=== PATIENT | male | born 1985 | race Caucasian/White ===

== ENCOUNTER 2022-08-07 16:19 | Inpatient (IN) | payer SELFPAY ==
[~2022-08-07] VITALS: Ht 172.7 cm; Wt 93.4 kg
[2022-08-07 14:25] VITALS: BP 148/80
--- NOTE | 2022-08-07 16:15 | NUR ---
PATIENT TRANSFERRED FROM [facility] WHERE HE HAD HERNIA SURGERY THIS MORNING. WAS GIVEN ANCEF 2G AT 0741 AND WAS LAST MEDICATED FOR PAIN AT 1500 WITH FENTANYL 300MCG AND DILAUDID 1G REPORTED FROM RN FROM [place]. ARRIVED VIA GUERNEY AND AMBULANCE AT 1615. VITAL SIGNS TAKEN AND RECORDED. ICE APPLIED TO SURGICAL WOUND ON ABDOMEN AND DRESSING REINFORCED. PATIENT HAS SEVERE PAIN 10/10 AND IS RESTLESS, GRIMACING AND GUARDING THE AREA. DR MARTIN INFORMED ABOUT PT'S ARRIVAL AND CURRENTLY WORKING ON MEDICATION ORDERS.
[2022-08-07] MEDS ORDERED: Z GUARD REMEDY 4 OZ OINT TP PRN (17:00)
[2022-08-07] MEDS ORDERED: HYDROMORPHONE INJ 2 MG/ML DISP.SYRIN IV PRN (17:00)
[2022-08-07] MEDS ORDERED: MAG HYDROX/AL HYDROX/SIMETH 30 ML UDC PO PRN (17:00)
[2022-08-07] MEDS ORDERED: ACETAMINOPHEN 325 MG TABLET PO PRN (17:00)
--- NOTE | 2022-08-07 18:36 | NUR ---
RN CLOSING NOTES PATIENT HAS PAIN 10/10 FROM HERNIA SURGERY EARLIER THIS MORNING. DR MARTIN ORDERED 1 MG DILAUDID IVP Q 4 HOURS FOR PAIN. LAST ADMINISTERED PAIN MED AT 1713. MODERATE AMOUNT OF SEROSANGUINOUS DRAINAGE ON ABD PAD COVERING SURGICAL WOUND. REINFORCED DRESSING AND PUT ICE ON TOP OF ABDOMINAL AREA. VITAL SIGNS STABLE AND SPO2=96% RA. IV ACCESS TO LEFT HAND #20G, PATENT AND SALINE LOCKED. TOOTH CUTTER CONTACT WHEEL CONSULT REQUESTED PATIENT IS CURRENTLY HOMELESS. SAFETY MEASURES APPLIED; BED IN LOWEST AND LOCKED POSITION, SIDE RAILS X 3, CALL LIGHT WITHIN EASY REACH. WILL ENDORSE LORENZO TO NEXT SHIFT.
--- NOTE | 2022-08-07 18:43 | NUR ---
RN MS NOTES PT COMPLAINING OF ABDOMINAL PAIN, PER DR. MARTIN, OK TO INCREASE FREQUENCY OF DILAUDID ORDER TO EVERY 3 HOURS PRN AND MAY GIVE THE NEXT DOSE NOW, NOTED AND CARRIED OUT.
[2022-08-07] MEDS: HYDROMORPHONE INJ 2 MG/ML DISP.SYRIN IV PRN ×2 (18:52→22:15)
[2022-08-07 20:00] VITALS: BP 143/83
--- NOTE | 2022-08-07 20:22 | NUR ---
RN OPENING NOTE PATIENT AWAKE IN BED W/ FAMILY AT BEDSIDE. A/OX4. NO S/S OF DISTRESS, BREATHING WITHOUT DIFFICULT ON ROOM AIR. L-HAND #20 SL INTACT AND PATENT. SAFETY MEASURES IN PLACE: BED LOCKED AT LOWEST LEVEL, RAILS UP X2, CALL SAUER WITHIN REACH. PATIENT HAS REMOVED HIS POST-SURGICAL DRESSING. NEW DRESSING APPLIED. NO S/S OF INFECTION OR ACTIVE BLEEDING. MODERATE DRAINAGE SEROSANGUINEOUS. PATIENT WAS CLEANED UP; ALL COMFORT MEASURES TAKEN. ON-CALL MD, DR. CABRERA, CONTACTED FOR AN ORDER TO AID IN DIMINISHING/LESSENING HIS RESTLESSNESS. WILL CONTINUE TO MONITOR PATIENT.
--- NOTE | 2022-08-07 22:15 | NUR ---
RN NOTE PATIENT HAD REQUESTED PAIN MEDS (TO BE ADMINISTERED VIA IV PER ORDER). PATIENT'S LINE WAS NO LONGER VIABLE. IV SUCCESSFULLY REMOVED WITH ALL PARTS INCLUDING CATH INTACT. NEW LINE SUCCESSFULLY INSERTED IN LFA, INFERIOR #20. PATIENT STABLE. WILL CONTINUE TO MONITOR PATIENT.
[2022-08-08] MEDS: HYDROMORPHONE INJ 2 MG/ML DISP.SYRIN IV PRN ×7 (01:33→22:57)
[2022-08-08 06:06] LABS: BASOPHILS % (AUTO) 0.2 % (0.0-2.0); HEMATOCRIT 37 % (39-51); HEMOGLOBIN 12.9 g/dL (13.5-17.5); LYMPHOCYTES # (AUTO) 1.2 K/uL (0.8-4.8); LYMPHOCYTES % (AUTO) 10.9 % (20.0-44.0); MEAN CORPUSCULAR HGB CONC 35 g/dl (31.0-36.0); MEAN CORPUSCULAR VOLUME 95 fL (80-96); MONOCYTES % (AUTO) 9.4 % (2.0-12.0); NEUTROPHILS # (AUTO) 8.4 K/uL (1.8-8.9); NEUTROPHILS % (AUTO) 79.5 % (43.0-81.0); PLATELET COUNT (AUTO) 215 K/uL (150-450); RED BLOOD CELL COUNT(AUTO) 3.88 MIL/uL (4.5-6.0); WHITE BLOOD COUNT (AUTO) 10.6 K/uL (4.3-11.0)
--- NOTE | 2022-08-08 06:44 | NUR ---
RN CLOSING NOTE PATIENT AWAKE IN BED. A/OX4. NO S/S OF DISTRESS, BREATHING WITHOUT DIFFICULTY ON ROOM AIR. LFA #20 SL INTACT AND PATENT. BED LOCKED AT LOWEST POSITION, RAILS UP X2, CALL SAUER WITHIN REACH. WILL ENDORSE TO NEXT SHIFT FOR LORENZO.
[2022-08-08 06:49] LABS: CALCIUM, SERUM 8.8 mg/dL (8.5-10.1); CREATININE 0.9 mg/dL (0.6-1.3); MAGNESIUM 1.9 mg/dL (1.8-2.4); PHOSPHORUS 2.9 mg/dL (2.5-4.9); POTASSIUM 3.4 mmol/L (3.5-5.1)
--- NOTE | 2022-08-08 07:23 | NUR ---
RN OPENING NOTES RECEIVED PATIENT IN BED, AWAKE, A/O X4, VERBALLY RESPONSIVE. NO SIGNS OF ACUTE DISTRESS NOTED. ON ROOM AIR, TOLERATING WELL. WITH C/O PAIN, WILL MEDICATE ORDERED. NOTED WITH LEFT FOREARM #20G, INTACT AND PATENT, SALINE LOCKED. SAFETY MEASURE IN PLACE. BED IN LOWEST AND LOCKED POSITION, SIDE RAILS UP X2, CALL LIGHT PLACED WITHIN EASY REACH. WILL CONTINUE TO MONITOR PATIENT.
[2022-08-08 08:00] VITALS: BP 127/89
[2022-08-08] MEDS ORDERED: ONDA4VIA52 IV (08:15)
[2022-08-08] MEDS ORDERED: ALLA266C2 TP (08:15)
[2022-08-08] MEDS ORDERED: MORP4VIA IV (08:15)
[2022-08-08] MEDS ORDERED: [UNRECOGNIZED DRUG - CODE] IV (08:15)
[2022-08-08] MEDS ORDERED: MAGN400O6 PO (08:15)
[2022-08-08] MEDS ORDERED: PANT40VI IV (08:15)
[2022-08-08] MEDS ORDERED: ACET-868 PO (08:15)
[2022-08-08] MEDS ORDERED: POTASSIUM CHLORIDE 20 MEQ POWDER PACKET PO SCH (11:00)
[2022-08-08] MEDS ORDERED: NALOXONE HCL 0.4 MG/ML AMPUL IV PRN (14:00)
[2022-08-08] MEDS: GABAPENTIN 300 MG CAPSULE PO SCH ×2 (14:43→16:53)
[2022-08-08] MEDS: oxyCODONE HCL SR 40MG TAB.SR.12H PO SCH ×2 (14:43→20:12)
[2022-08-08 16:00] VITALS: BP 136/91
--- NOTE | 2022-08-08 18:51 | NUR ---
RN CLOSING NOTES PATIENT RESTING IN BED, A/O X4, VERBALLY RESPONSIVE. NO SIGNS OF ACUTE DISTRESS NOTED. REMAINS STABLE ON ROOM AIR, NO SOB NOTED, BREATHING EVEN AND UNLABORED. STILL WITH C/O PAIN, MEDICATED NEEDED. IV ACCESS ON LEFT FOREARM #20G, INTACT AND PATENT, SALINE LOCKED. SURGICAL DRESSING CHANGED. SAFETY PRECAUTIONS OBSERVED. BED IN LOWEST AND LOCKED POSITION, SIDE RAILS UP X2, CALL LIGHT PLACED WITHIN EASY REACH. WILL ENDORSE TO NEXT SHIFT FOR CONTINUITY OF CARE.
--- NOTE | 2022-08-08 19:43 | NUR ---
RN OPENING NOTES; RECEIVED PATIENT IN BED AA/O X4, VERBALLY RESPONSIVE.SAIGE WELL ON ROOM AIR, NO SOB/DISTRESS NOTED, BREATHING EVEN AND UNLABORED.NO COMPLAINE OF PAIN/DISCOMFORT AT THIS TIME,IV ACCESS ON LEFT FOREARM #20G, INTACT AND PATENT, SALINE LOCKED.SAFETY PRECAUTIONS OBSERVED. BED IN LOWEST AND LOCKED POSITION, SIDE RAILS UP X2, CALL LIGHT PLACED WITHIN EASY REACH. WILL CONTINIUE TO MONITOR.
[2022-08-08 20:00] VITALS: BP 112/74
[2022-08-08] MEDS: ZOLPIDEM TARTRATE 5 MG TABLET PO PRN (22:35)
--- NOTE | 2022-08-08 22:57 | NUR ---
RN NOTES; PATIENT COMPLAINED OF PAIN 10/10 LOWER ANTERIOR UPPER ABD 8/10,PRN DILAUDED 2MG INJ,WAS GIVEN.NO A/R NOTED.
[2022-08-09] MEDS: HYDROMORPHONE INJ 2 MG/ML DISP.SYRIN IV PRN ×6 (03:53→22:41)
--- NOTE | 2022-08-09 03:53 | NUR ---
RN NOTES; PATIENT COMPLAINED OF PAIN 10/10 LOWER ANTERIOR UPPER ABD 8/10,PRN DILAUDED 2MG INJ,WAS GIVEN.NO A/R NOTED.
[2022-08-09 04:00] VITALS: BP 128/95
--- NOTE | 2022-08-09 06:22 | NUR ---
RN CLOSING NOTES; PATIENT IN BED AA/O X4, VERBALLY RESPONSIVE.SAIGE WELL ON ROOM AIR, NO SOB/DISTRESS NOTED, BREATHING EVEN AND UNLABORED.DUE MEDS GIVEN ORDER,ALL NEEDS ATTENDED,,IV ACCESS ON LEFT FOREARM #20G, INTACT AND PATENT, SALINE LOCKED.SAFETY PRECAUTIONS OBSERVED. BED IN LOWEST AND LOCKED POSITION, SIDE RAILS UP X2, CALL LIGHT PLACED WITHIN EASY REACH. WILL ENDORSED TO NEXT SHIFT.
[2022-08-09 07:33] LABS: CALCIUM, SERUM 9.1 mg/dL (8.5-10.1); CREATININE 0.9 mg/dL (0.6-1.3); POTASSIUM 3.3 mmol/L (3.5-5.1)
--- NOTE | 2022-08-09 07:58 | NUR ---
RN OPENING NOTES; PATIENT IN BED A/O X4, VERBALLY RESPONSIVE. ON ROOM AIR, NO SOB/DISTRESS NOTED, BREATHING EVEN AND UNLABORED.ALL NEEDS ATTENDED,IV ACCESS ON LEFT FOREARM #20G, INTACT AND PATENT, SALINE LOCKED.SAFETY PRECAUTIONS OBSERVED. BED IN LOWEST AND LOCKED POSITION, SIDE RAILS UP X2, CALL LIGHT PLACED WITHIN EASY REACH. WILL CONTINUE TO MONITOR..
[2022-08-09 08:00] VITALS: BP 133/80
[2022-08-09] MEDS ORDERED: POLYETHYLENE GLYCOL 3350 17 GM POWD.PACK PO PRN (09:00)
[2022-08-09] MEDS: GABAPENTIN 300 MG CAPSULE PO SCH ×3 (09:42→16:18)
[2022-08-09] MEDS: oxyCODONE HCL SR 40MG TAB.SR.12H PO SCH ×2 (09:44→20:45)
[2022-08-09] MEDS: MAGNESIUM HYDROXIDE 30 ML UDC PO PRN (11:10)
[2022-08-09] MEDS ORDERED: POTASSIUM CHLORIDE 20 MEQ TAB.PRT.SR PO SCH (11:30)
--- NOTE | 2022-08-09 18:55 | NUR ---
RN CLOSING NOTES; PATIENT IN BED A/O X4, VERBALLY RESPONSIVE. ON ROOM AIR, NO SOB/DISTRESS NOTED, BREATHING EVEN AND UNLABORED.ALL NEEDS ATTENDED,IV ACCESS ON LEFT FOREARM #20G, INTACT AND PATENT, SALINE LOCKED.ALL DUE MEDS GIVEN ORDERED. NO BM YET . MOM GIVEN. ALL SAFETY PRECAUTIONS OBSERVED. BED IN LOWEST AND LOCKED POSITION, SIDE RAILS UP X2, CALL LIGHT PLACED WITHIN EASY REACH. WILL ENDORSE FOR LORENZO..
[2022-08-09 20:32] VITALS: BP 129/81
[2022-08-09 20:44] VITALS: BP 129/81
[2022-08-09] MEDS: ZOLPIDEM TARTRATE 5 MG TABLET PO PRN (23:35)
[2022-08-10 02:00] VITALS: BP 139/72
[2022-08-10] MEDS: HYDROMORPHONE INJ 2 MG/ML DISP.SYRIN IV PRN ×5 (02:40→22:02)
--- NOTE | 2022-08-10 04:06 | NUR ---
CLOSING NOTES: ALERT AND ORIENTATED X4 COOPERATIVE ABD GUARDED /DRESSING CDI (S/P) HERNIA REPAIR BS AUDIBLE VIA AUSCULTATION PASSING FLATUS, NO BM YET. CHANGING HIS OWN POSITION IN BED THRU THE NIGHT MEDICATED WITH DILAUDID ORDERED AND EFFECTIVE FOR THE PAIN CONTROL.
[2022-08-10 06:36] LABS: CALCIUM, SERUM 9.3 mg/dL (8.5-10.1); CREATININE 0.9 mg/dL (0.6-1.3); POTASSIUM 3.4 mmol/L (3.5-5.1)
[2022-08-10 08:00] VITALS: BP 109/62
[2022-08-10] MEDS: GABAPENTIN 300 MG CAPSULE PO SCH ×3 (09:20→17:09)
[2022-08-10] MEDS: oxyCODONE HCL SR 40MG TAB.SR.12H PO SCH ×2 (09:21→21:33)
[2022-08-10] MEDS ORDERED: POTASSIUM CHLORIDE 20 MEQ POWDER PACKET PO SCH (10:00)
--- NOTE | 2022-08-10 11:22 | NUR ---
SS consult: SS consult requested for homelessness & drug use. The pt. is a 37-year-old male admitted to [facility] who was BIBRA due to Hernia repair. The pt. is Alert & Oriented x4 and makes good eye contact. The pt. appears well-groomed and remains calm & cooperative throughout interview. Pt. has depressed mood and affect. The pt.s speech is WNL. Pt. admits to current SI with no plan and Hi with no specific target he has thoughts of having. The pt. denies current hallucinations. SW explored pt.s Hx. of mental health. Pt. denies Hx. of diagnosis. SW explored pt.s living situation. Pt. states he is currently experiencing homelessness and stays on the streets with his friends. SW explored pt.s drug & ETOH use. Pt. states he recently began using M-30 fentanyl and is requesting detox facility. green end worker provided support with motivational interviewing, education regarding opioid dependence, brief intervention and referral to treatment. SW provided pt. with addiction resources and MAT resources: [facility]: [address] [place] [address] Intake hours: 5:45am9:00am, walk-ins Tuesday, Tuesday, [facility]: [address] [place] [address] Intake hours: 5:45am12:30pm, Tuesday and [facility]: [address] [place] [id number] Intake hours: 8:00am2:00pm, Tuesday through Tuesday Pt. accepted resources. Patient states he has received prior treatment for opioid dependence and has been sober for years until now. Pt. states his girlfriend and family are his support system. Patient appears to be at the action phase of change with substance dependence. Plan: Pt. has no insurance covergae at this time. The [employer] DEPT. helped him apply for Medi-Jin and admitting will apply for presumptive medi-jin. Pt. states he is open to voluntary admissions to [facility] where they can also help him with he detox and drug use component. YOSEPH will fax clinicals to [facility] TEL:[phone] fax:[phone] for for voluntary psychiatric treatment at [facility] [[address] [place] [address] FAX:[phone]] when presumptive mcal has taken effect. SW provided pt. with homeless, mental health and addiction resources and pt. accepted them. Patient signed homeless waiver & it was placed in the pt.s chart. Year-round shelters: [facility] [address] [place] [address] ; [facility] [address] [place] [address]; [facility] [address] [facility] [address] Hygiene: [facility]: [address] [place] ; [facility] [address] [facility] ; [facility] [address] [facility] . Food Resources: [facility] at [facility]- [address] [facility]; Meet Each Need with Dign[facility] ([facility]) [address] [facility]; [facility] [address] [facility]; [facility] [address] [facility]. Mental Health resources provided: [facility] [address] [place] [address] ; [facility] [address] [facility] [address], [place] [address] ; Brianna gNuyen [facility] [address] [place] [address] ; [facility] [address] [place] [address] Healthcare Clinics: [facility] [address] [facility], [address] [place]. [place] ; [facility] [address] [facility] [address] [place] [address]; [facility] [place] [address] [facility] [place] [address] [phone] Counseling--Outpatient [facility] [address], [address] [place], [place] [address] (Specializes in in-depth psychotherapy for emotional distress: anxiety, depression, interpersonal conflicts, life transitions, childhood abuse) [facility] [address] [place] [address] (Assist with solving problem marital difficulties, separation & divorce, aging parents, & grief, chronic & terminal illness) [facility] [address] [place] [address] (Deal with loss & grief, anxiety, marital difficulties) Homebound/Mental Health Services [address] [facility] [address] [place] [address] (Provide in-home mental services to people who are incapable of leaving their homes) [facility] Elderly Senior Service/[facility] [address] [facility] [place] [address] [facility] [address] [facility] [place] [address] PSYCHIATRIC OUTPATIENT SERVICES [facility] Partial Hospitalization and Intensive Outpatient Program (Managed Care and [place] Only)[address] [facility] [phone] [facility] Partial Hospitalization and Outpatient [id number] [place], [place] [phone] [facility] Center [id number] [facility] [address] [place], [place] [phone] [facility] Partial Hospitalization and Outpatient [id number] [place], [phone] Substance Abuse resources provided included: [facility] Substance Abuse Self-Helpline (SAS ; CRI -[facility]LP [address] [facility]. [place]. [place] [address] ; [facility] [address] [facility] [address] ; [facility] [address] [place] [address] ; [facility] [address] [facility] [phone] ; [facility] Treatment [facility] [address] [facility] [address] ; [facility] [address] [phone] ; [facility] Substance Abuse Helpline(SAS)[facility] ; [facility] ; [facility] [place]; [facility] [place]; [facility] [place]; [facility] Reilly Frank; [facility] [place]; [facility] [place]; [facility] [place]; [facility] [place]; Alcoholics Anonymous -SFV; Fg-Ewqm-Nclzujy ; Marijuana Anonymous -SFV; Narcotics Anonymous www.na.org;
[2022-08-10] MEDS ORDERED: HYDROMORPHONE INJ 2 MG/ML DISP.SYRIN IV PRN (11:30)
[2022-08-10] MEDS ORDERED: HYDROMORPHONE 1 MG/1 ML DISP.SYRIN IV STA (11:39)
[2022-08-10 16:00] VITALS: BP 114/58
--- NOTE | 2022-08-10 17:59 | NUR ---
RN CLOSING NOTE PATIENT RECEIVED IN BED AND AWAKE. REMAINS A/OX4 AND ABLE TO VERBALIZE ALL NEEDS. PATIENT REMAINS ON ROOM AIR WITH NO S/SX OF RESPIRATORY DISTRESS. C/O PAIN THROUGHOUT SHIFT. RECEIVED PRN DILAUDID X2 WELL 1X BREAKTHROUGH DOSE. MEDICATION EFFECTIVE FOR MINIMAL TIME PATIENT CONTINUOUSLY C/O PAIN. PATIENT OBSERVED WALKING TO/FROM BATHROOM AND THROUGHOUT UNIT. REMAINS ON FULL LIQUIDS DIET; TOLERATING WELL. RECEIVED SHOWER ON SHIFT. TOLERATED ALL MEDICATIONS AND CARE WELL. PATIENT REMAINED COMFORTABLE AND KEPT CLEAN AND DRY. SAFETY MEASURES REMAIN IN PLACE WITH BED LOW AND LOCKED. SIDE-RAIL UPX2 WITH CALL LIGHT, PHONE AND TABLE WITHIN REACH. WILL CONT TO MONITOR.
[2022-08-10 20:00] VITALS: BP 118/73
[2022-08-10] MEDS: ZOLPIDEM TARTRATE 5 MG TABLET PO PRN (23:44)
[2022-08-11] MEDS: HYDROMORPHONE INJ 2 MG/ML DISP.SYRIN IV PRN ×3 (03:42→10:46)
--- NOTE | 2022-08-11 03:52 | NUR ---
Closing notes: alert and orientated x4 ambulates to the bathroom steady gait abd incision dressing CDI BS via ausculation medicated with Dilaudid 2 mg IV and effective tolerating his diet
--- NOTE | 2022-08-11 07:30 | NUR ---
RN OPENING NOTES RECEIVED PATIENT STANDING IN THE HALLWAY, AMBULATORY WITH STEADY GAIT, A/O X4, VERBALLY RESPONSIVE. NO SIGNS OF ACUTE DISTRESS NOTED. ON ROOM AIR, TOLERATING WELL. NO SOB NOTED. STILL WITH C/O ABDOMINAL PAIN, WILL MEDICATE ORDERED. NOTED WITH LEFT FOREARM #20G, INTACT AND PATENT, SALINE LOCKED. SAFETY MEASURE IN PLACE. BED IN LOWEST AND LOCKED POSITION, SIDE RAILS UP X2, CALL LIGHT PLACED WITHIN EASY REACH. WILL CONTINUE TO MONITOR PATIENT.
[2022-08-11] MEDS: ONDANSETRON HCL/PF 4 MG/2 ML VIAL IVP PRN (07:49)
[2022-08-11 08:00] VITALS: BP 130/76
[2022-08-11] MEDS: oxyCODONE HCL SR 40MG TAB.SR.12H PO SCH ×2 (08:57→21:35)
[2022-08-11] MEDS: GABAPENTIN 300 MG CAPSULE PO SCH ×3 (08:57→16:07)
[2022-08-11] MEDS ORDERED: MAGNESIUM HYDROXIDE 30 ML UDC PO ONE (10:00)
[2022-08-11 11:26] LABS: BASOPHILS % (AUTO) 0.4 % (0.0-2.0); EOSINOPHILS % (AUTO) 0.5 % (0.0-6.0); HEMATOCRIT 47 % (39-51); HEMOGLOBIN 15.8 g/dL (13.5-17.5); LYMPHOCYTES # (AUTO) 1.5 K/uL (0.8-4.8); LYMPHOCYTES % (AUTO) 14.4 % (20.0-44.0); MEAN CORPUSCULAR HGB CONC 34 g/dl (31.0-36.0); MEAN CORPUSCULAR VOLUME 96 fL (80-96); MONOCYTES # (AUTO) 0.8 K/uL (0.1-1.30); MONOCYTES % (AUTO) 7.5 % (2.0-12.0); NEUTROPHILS # (AUTO) 8.3 K/uL (1.8-8.9); NEUTROPHILS % (AUTO) 77.2 % (43.0-81.0); PLATELET COUNT (AUTO) 285 K/uL (150-450); RED BLOOD CELL COUNT(AUTO) 4.84 MIL/uL (4.5-6.0); WHITE BLOOD COUNT (AUTO) 10.7 K/uL (4.3-11.0)
[2022-08-11 11:44] LABS: ALBUMIN 3.4 g/dL (3.4-5.0); BILIRUBIN,TOTAL 0.6 mg/dL (0.2-1.0); POTASSIUM 3.8 mmol/L (3.5-5.1)
[2022-08-11] MEDS ORDERED: BISACODYL (5 MG) 5 MG TABLET.DR PO PRN ×2 (14:00→14:30)
[2022-08-11 16:00] VITALS: BP 111/65
[2022-08-11] MEDS: BISACODYL SUPP (10 MG) 10 MG/SUPP.RECT SUPP.RECT RC ONE ×2 (16:06→16:42)
[2022-08-11] MEDS: MAGNESIUM HYDROXIDE 30 ML UDC PO PRN (16:14)
--- NOTE | 2022-08-11 18:41 | NUR ---
RN CLOSING NOTES PATIENT RESTING IN BED, A/O X4, VERBALLY RESPONSIVE. NO SIGNS OF ACUTE DISTRESS NOTED. REMAINS STABLE ON ROOM AIR, NO SOB NOTED, BREATHING EVEN AND UNLABORED. STILL WITH C/O ABDOMINAL PAIN. LAXATIVES GIVEN BUT INEFFECTIVE. IV ACCESS ON LEFT FOREARM #20G, INTACT AND PATENT, SALINE LOCKED. ABDOMINAL SURGICAL INCISION SITE APPEARS CLEAN AND DRY, NO S/SX OF INFECTION NOTED. PATIENT REFUSED DRESSING TO SITE. SAFETY PRECAUTIONS OBSERVED. BED IN LOWEST AND LOCKED POSITION, SIDE RAILS UP X2, CALL LIGHT PLACED WITHIN EASY REACH. WILL ENDORSE TO NEXT SHIFT FOR CONTINUITY OF CARE.
[2022-08-11 20:00] VITALS: BP 95/58
[2022-08-11 21:30] VITALS: BP 112/65
[2022-08-11] MEDS: ZOLPIDEM TARTRATE 5 MG TABLET PO PRN (23:50)
--- NOTE | 2022-08-12 06:41 | NUR ---
MS RN CLOSING NOTE PATIENT SLEEPING IN BED, ALERT/ORIENTED X 4, PT ABLE TO MAKE NEEDS KNOWN. PATIENT SLEPT WELL THROUGH THE NIGHT, NO SIGNIFICANT CHANGES, MEDICATIONS GIVEN ORDERED, PT NEEDS MET THROUGHOUT SHIFT. IV ACCESS ON LEFT FOREARM INTACT AND SALINE LOCKED. PATIENT DID NOT HAVE BM DESPITE DULCOLAX 10 MG PO GIVEN. SAFETY MEASURES IN PLACE: CALL LIGHT WITHIN REACH, SIDE RAILS UP X 2, BED LOCKED IN LOWEST POSITION. WILL ENDORSE TO DAY SHIFT NURSE FOR CONTINUITY OF CARE
--- NOTE | 2022-08-12 07:25 | NUR ---
MS RN OPENING NOTE RECEIVED PT AWAKE, RESTING IN BED. PT IS A/O X4, ABLE TO MAKE NEEDS KNOWN. ON RA, TOLERATING WELL. NO SOB NOTED. NOT IN ANY SIGN OF RESPIRATORY DISTRESS. IV ACCESS IN LFA G #20, SALINE LOCK, INTACT AND PATENT. SAFETY MEASURES IN PLACE: BED IN LOWEST AND LOCKED POSITION, SIDE RAILS UPX2, AND CALL LIGHT WITHIN REACH. WILL CONTINUE TO MONITOR PT.
[2022-08-12 08:00] VITALS: BP 132/86
[2022-08-12] MEDS: ONDANSETRON HCL/PF 4 MG/2 ML VIAL IVP PRN (08:05)
--- NOTE | 2022-08-12 08:05 | NUR ---
RN NOTE PT C/O NAUSEA AND REQUESTED FOR ZOFRAN. ZOFRAN 4MG IVP ADMINISTERED ORDERED PRN Q6HRS FOR NAUSEA AND VOMITING. WILL MONITOR AND REASSESS PT.
--- NOTE | 2022-08-12 08:15 | NUR ---
RN NOTE PT C/O ABDOMINAL PAIN WITH PAIN SCALE LEVEL OF 8/10 AND REQUESTED FOR THE OXYCODONE NOW. CALLED RA JEROME NP, MADE HER AWARE OF PT'S C/O PAIN AND THE SCHEDULED OXYCODONE IS NOT DUE UNTIL 0900. BELKIS JEROME NP ORDERED TO GIVE TRAMADOL 100MG PO X1 TIME DOSE.
--- NOTE | 2022-08-12 08:25 | NUR ---
RN NOTE TRAMADOL 100MG PO ADMINISTERED ORDERED ONE TIME DOSE FOR PT'S C/O ABDOMINAL PAIN WITH PAIN SCALE LEVEL OF 8/10. WILL MONITOR AND REASSESS PT.
--- NOTE | 2022-08-12 08:26 | NUR ---
RN NOTE CALLED AND CLARIFIED WITH RA JEROME NP IF OK TO GIVE THE SCHEDULED OXYCODONE AT 0900 AFTER TRAMADOL ADMINISTERING THE TRAMADOL, PER RA SWEENEY NP, TO ADMINISTER SCHEDULED AT 0900.
[2022-08-12] MEDS ORDERED: TRAMADOL HCL 50 MG TABLET PO ONE (08:30)
[2022-08-12] MEDS: GABAPENTIN 300 MG CAPSULE PO SCH ×2 (08:59→13:00)
[2022-08-12] MEDS: oxyCODONE HCL SR 40MG TAB.SR.12H PO SCH (08:59)
[2022-08-12] MEDS ORDERED: diphenhydrAMINE HCL 50 MG CAPSULE PO PRN ×2 (09:30→22:00)
[2022-08-12] MEDS ORDERED: hydrOXYzine PAMOATE 25 MG CAPSULE PO PRN (09:30)
[2022-08-12] MEDS ORDERED: HYDR-3895 PO (10:32)
[2022-08-12] MEDS ORDERED: AMOX-430 PO (10:32)
[2022-08-12] MEDS ORDERED: POLY17PO29 PO (10:32)
[2022-08-12] MEDS ORDERED: GABA300C PO (10:32)
[2022-08-12] MEDS ORDERED: TRAM50TA2 PO (10:32)
[2022-08-12] MEDS ORDERED: OXYCODONE HCL 40 MG PO (10:32)
--- NOTE | 2022-08-12 12:55 | NUR ---
CHILDREN'S MINISTRY DIRECTOR NOTE PT DISCHARGED TO HOME IN STABLE CONDITION. PT A/O X4, ABLE TO MAKE NEEDS KNOWN. ON RA, TOLERATING WELL, PT REFUSED PULSE OXIMETRY TO CHECK SPO2 STATUS. NO SOB NOTED. NOT IN ANY SIGN OF RESPIRATORY DISTRESS. VITAL SIGNS AND SKIN ASSESSMENTS IS ALSO REFUSED BY PT. PT HAS NO BELONGINGS. DISCHARGED INSTRUCTIONS AND HEALTH TEACHINGS GIVEN TO PT AND PT VERBALIZED UNDERSTANDING. MADE HIM AWARE THAT HE HAS A PRESCRIPTION OF OXYCODONE Q 12HRS X 3 DAYS, TRAMADOL, ANTIBIOTICS X 7DAYS ORDERED BY RA JEROME NP AND MADE HIM AWARE THAT THE LAST DOSE OF OXYCODONE GIVEN TO HIM WAS AT 0900 SO THE NEXT DOSE WILL BE 2100 TONIGHT. PT VERBALIZED UNDERSTANDING. THE IV ACCESS IN LFA G #20 REMOVED WITH NO ACTIVE BLEEDING NOTED. DRY PRESSURE DRESSING APPLIED TO SITE. NAME BAND REMOVED. PT LEFT THE UNIT AT 1250 AMBULATORY, REFUSED TO BE ACCOMPANIED BY STAFF. PT WAS PICKED UP BY GIRLFRIEND VIA PRIVATE CAR. MD AND CHARGED NURSE AWARE OF DISCHARGED.
[2022-08-14] MEDS ORDERED: TRAM50TA2 PO (13:49)
[2022-08-14] MEDS ORDERED: IBUP-1957 PO (14:37)
[2022-08-14] MEDS ORDERED: GABA300C PO (15:56)
== END 2022-08-12 13:45 | disposition home or self-care (01) | DRG 395 ==
LOC: MED 16:19
PROVIDERS: ADMIT Nurse Practitioner Acute Care; ATTEND Nurse Practitioner Acute Care
DX: K43.6 Other and unspecified ventral hernia with obstruction, without gangrene (principal); Z20.822 Contact with and (suspected) exposure to COVID-19; Z68.30 Body mass index [BMI] 30.0-30.9, adult; Z98.890 Other specified postprocedural states; F11.21 Opioid dependence, in remission; K59.00 Constipation, unspecified; E87.6 Hypokalemia; F41.9 Anxiety disorder, unspecified
CPT/HCPCS: 36415; 74018; 80048-TC; 80053-TC; 80061-TC; 83735-TC; 84100-TC; 85025-TC; 87081-TC; A6253; G0378; J1170; J2405

== ENCOUNTER 2022-08-13 08:56 | Emergency (ER) | payer MEDICAID ==
[~2022-08-13] VITALS: Ht 172.7 cm; Wt 89.8 kg
[~2022-08-13 08:56] MED LIST: ACET-868 PO; ALLA266C2 TP; AMOX-430 PO; GABA300C PO; HYDR-3895 PO; MAGN400O6 PO; OXYCODONE HCL 40 MG PO; POLY17PO29 PO; TRAM50TA2 PO
--- NOTE | 2022-08-13 09:13 | NUR ---
TO ER BED 12, C/O ABDOMINAL PAIN S/P ABDOMINAL SURGERY LAST TUESDAY. UNABLE TO FILL PRESCRIBED PAIN MEDICATION, AAOX3, BREATHING EVEN AND NON LABORED, CONNECTED TO MONITOR
[2022-08-13] MEDS ORDERED: KETOROLAC TROMETHAMINE INJ 30 MG/ML VIAL ONE (09:28)
[2022-08-13] MEDS ORDERED: KETOROLAC TROMETHAMINE INJ 30 MG/ML VIAL IV ONE (09:30)
[2022-08-13 09:34] LABS: BASOPHILS % (AUTO) 0.1 % (0.0-2.0); EOSINOPHILS % (AUTO) 0.3 % (0.0-6.0); HEMATOCRIT 42 % (39-51); HEMOGLOBIN 14.8 g/dL (13.5-17.5); LYMPHOCYTES # (AUTO) 0.6 K/uL (0.8-4.8); LYMPHOCYTES % (AUTO) 6.1 % (20.0-44.0); MEAN CORPUSCULAR HGB CONC 35 g/dl (31.0-36.0); MEAN CORPUSCULAR VOLUME 95 fL (80-96); MONOCYTES # (AUTO) 0.4 K/uL (0.1-1.30); MONOCYTES % (AUTO) 4.7 % (2.0-12.0); NEUTROPHILS # (AUTO) 8.2 K/uL (1.8-8.9); NEUTROPHILS % (AUTO) 88.8 % (43.0-81.0); PLATELET COUNT (AUTO) 292 K/uL (150-450); RED BLOOD CELL COUNT(AUTO) 4.46 MIL/uL (4.5-6.0); WHITE BLOOD COUNT (AUTO) 9.3 K/uL (4.3-11.0)
[2022-08-13 09:55] LABS: ALBUMIN 3.8 g/dL (3.4-5.0); BILIRUBIN,DIRECT 0.2 mg/dL (0.0-0.2); BILIRUBIN,TOTAL 0.8 mg/dL (0.2-1.0); CALCIUM, SERUM 9.3 mg/dL (8.5-10.1); CREATININE 1.2 mg/dL (0.6-1.3); POTASSIUM 3.9 mmol/L (3.5-5.1); TOTAL PROTEIN, SERUM 7.4 g/dL (6.4-8.2)
[2022-08-13] MEDS ORDERED: IV NS 0.9% 250 ML IV ONE (10:14)
[2022-08-13] MEDS ORDERED: IOHEXOL-300 100 ML VIAL IV ONE (10:14)
--- NOTE | 2022-08-13 10:35 | NUR ---
STILL NOT ABLE TO GIVE URINE AT THIS TIME
[2022-08-13] MEDS ORDERED: HALOPERIDOL LACTATE INJ 5 MG/ML VIAL ONE ×2 (10:58→14:28)
[2022-08-13] MEDS ORDERED: HALOPERIDOL LACTATE INJ 5 MG/ML VIAL IV ONE ×2 (11:00→14:30)
--- NOTE | 2022-08-13 11:46 | NUR ---
MOVE SHEET SUBMITTED.
--- NOTE | 2022-08-13 12:10 | NUR ---
COVID SWAB DONE AND SENT TO LAB
[2022-08-13 13:00] LABS: BILIRUBIN,URINE NEGATIVE (NEGATIVE); COLOR,URINE YELLOW (YELLOW); LEUKOCYTE ESTERASE ,URINE NEGATIVE (NEGATIVE); NITRITE, URINE NEGATIVE (NEGATIVE); PH,URINE 8.5 (5.0-8.0); PROTEIN,URINE NEGATIVE (NEGATIVE); UGLUCOSE NEGATIVE (NEGATIVE)
[2022-08-13 13:34] LABS: BACTERIA,URINE None seen /HPF (None Seen); RBC,URINE NONE SEEN /HPF (0-2); SQUAMOUS EPITHELIAL CELL,UR None Seen /HPF (None Seen); WBC,URINE NONE SEEN /HPF (0-3)
[2022-08-13] MEDS ORDERED: DICYCLOMINE HCL INJ 20 MG/2 ML AMPUL IM ONE ×2 (14:28→14:30)
[2022-08-13] MEDS ORDERED: DIATR MEGLU/DIATRIZOATE SODIUM 120 ML BOTTLE (GASTROGRAPHIN) ONE (16:26)
--- NOTE | 2022-08-13 17:17 | NUR ---
LEFT AGAINST MEDICAL ADVISE, REFUSED TO SIGN AMA FORM, DR STOKES AWARE.
[2022-08-13 17:22] VITALS: BP 127/76
[2022-08-14] MEDS ORDERED: TRAM50TA2 PO (13:49)
[2022-08-14] MEDS ORDERED: IBUP-1957 PO (14:37)
[2022-08-14] MEDS ORDERED: GABA300C PO (15:56)
== END 2022-08-13 17:23 | disposition left against medical advice (07) ==
LOC: ER 08:59
DX: R10.30 Lower abdominal pain, unspecified (principal); F19.10 Other psychoactive substance abuse, uncomplicated; R94.8 Abnormal results of function studies of other organs and systems; K43.9 Ventral hernia without obstruction or gangrene; Z98.890 Other specified postprocedural states; Z20.822 Contact with and (suspected) exposure to COVID-19
CPT/HCPCS: 99285; 74177; 96374; 96375; 87426; 96376; 85025; 80048; 83690; 80076; 36415; 80307; 96372; 81001; J1630 ×2; J1885; J7050; J0500; Q9967; C9803; Q9963

== ENCOUNTER 2022-08-19 10:26 | Emergency (ER) | payer MEDICAID ==
[~2022-08-19] VITALS: Ht 172.7 cm; Wt 81.6 kg
[~2022-08-19 10:26] MED LIST changes: -ACET-868 PO; -ALLA266C2 TP; -AMOX-430 PO; -HYDR-3895 PO; +IBUP-1957 PO; -MAGN400O6 PO; -OXYCODONE HCL 40 MG PO; -POLY17PO29 PO; -TRAM50TA2 PO
--- NOTE | 2022-08-19 10:45 | NUR ---
RECEIVED PT 37 YRS MALE HERE for staple removed hernia repare on 08/07/22 still with lower medline abdomin one stable open no redness no sallen and dranning
--- NOTE | 2022-08-19 11:00 | NUR ---
SEEN BY DR. BECERRA
--- NOTE | 2022-08-19 11:40 | NUR ---
SEEN BY DR BECERRA ORDERS TO REMOVE JOLENE FROM SUPRA PUBIC WOUND ONE AFTER THE OTHER AND APPLIED BETADINE GAUZE FOR DRESSING- DONE.
--- NOTE | 2022-08-19 11:41 | NUR ---
Patient discharged to home in stable condition. Written and verbal after care instructions given. Patient verbalizes understanding of instruction. d/c home no draning in inction in healing process
[2022-08-19 11:46] VITALS: BP 120/75
== END 2022-08-19 11:47 | disposition home or self-care (01) ==
LOC: ER 10:30
DX: Z48.02 Encounter for removal of sutures (principal); Z59.00 Homelessness unspecified; Z79.899 Other long term (current) drug therapy